=== PATIENT | female | born 1980 | race Caucasian/White ===

== ENCOUNTER 2019-10-18 10:10 | Outpatient (REF) | payer MEDICAID, SELFPAY ==
--- NOTE | 2019-10-18 10:00 | PAPFT_PTH ---
PATIENT: Verenice Nelson LOC: [facility] U#:[id number] AGE/SX: 39/F ROOM: RE10/18/[address]: ELOY Gallegos : 1980 BED: DIS: 10/18/2019 SPEC #: [id number] RECD: 10/18/19 12:48 STATUS: SCOOTER REQ #: [id number] LISETH: 10/18/19 10:[address]: Irasema Barfield DEPT: [facility] Cytology RECD BY: Sugar Cardenas ENTERED: 10/18/19 12:48 SP TYPE: PAPFT OTHR DR: Be Mistry Tissues: 1 - CX/ENDOCX FOR PAP SMEARS Procedures: PAP THIN PREP/UVM Screening HPV DNA PROBE Comments: [id number]
== END 2019-10-18 10:30 ==
LOC: LBN 10:10
PROVIDERS: PCP Family Medicine; Visit Provider Nurse Practitioner Family
DX: Z12.4 Encounter for screening for malignant neoplasm of cervix (principal); Z11.51 Encounter for screening for human papillomavirus (HPV)
CPT/HCPCS: 88142; 87624

== ENCOUNTER 2019-10-19 14:03 | Outpatient (REF) | payer MEDICAID, SELFPAY ==
[2019-10-19 20:01] LABS: HCT 43.1 % (36.0-46.0); HGB 13.6 g/dL (11.2-15.7); MCH 27.9 pg (27.0-33.0); MCHC 31.6 % (32.0-36.0); MCV 88.3 fL (80-95); MPV 10.4 fL (8.0-11.0); Platelet Count 159 10^3/uL (130-400); RBC 4.88 10^6/uL (3.93-5.22); WBC 15.11 10^3/uL (4.4-10.8)
[2019-10-19 20:34] LABS: ALT 36 U/L (14-59); AST 21 U/L (15-37); Albumin 3.4 g/dL (3.4-5.0); Alkaline Phosphatase 87 U/L (46-116); Anion Gap 10.5 mmol/L (3-11); BUN 7 mg/dL (7-18); Bilirubin, Total 0.2 mg/dL (0.2-1.0); CO2 26.5 mmol/L (21.0-32.0); CREATININE 0.84 mg/dL (0.55-1.02); Calcium 8.7 mg/dL (8.5-10.1); Chloride 102 mmol/L (98-107); Glucose 106 mg/dL (74-106); Potassium 3.8 mmol/L (3.5-5.1); Sodium 139 mmol/L (136-145); TSH (W/Ref FT4) 2.13 uIU/mL (0.36-3.74); Total Protein 7.7 g/dL (6.4-8.2)
== END 2019-10-19 14:23 ==
LOC: NCHCN 14:03
PROVIDERS: PCP Nurse Practitioner; Visit Provider Nurse Practitioner
DX: R10.30 Lower abdominal pain, unspecified (principal)
CPT/HCPCS: 80053; 85027; 84443

== ENCOUNTER 2019-10-20 02:12 | Outpatient (CLI) | payer MEDICAID, SELFPAY ==
--- NOTE | 2019-10-20 06:15 | DI.US_ITS ---
EXAM: US PELVIS TRANSVAGINAL CLINICAL HISTORY: abd and pelvic cramping, r10.2 TECHNIQUE: Ultrasound performed using standard protocol. COMPARISON: US SURVEY*(P) from 10/11/2010 FINDINGS: Pelvic ultrasound was performed transabdominally and trans vaginally. Please see the accompanying da ta sheet for measurements of the pelvic structures. Uterus is unremarkable in appearance with a 7 mi llimeter thick homogeneous endometrial stripe. Ovaries were only visualized transabdominally and are grossly intact. No free fluid in cul-de-sac. Limited scanning of the kidneys is unremarkable. IMPRESSION: Negative pelvic ultrasound. DATA REPOSITORY:
== END 2019-10-20 02:32 ==
PROVIDERS: PCP Nurse Practitioner; Visit Provider Nurse Practitioner Family
DX: R10.2 Pelvic and perineal pain (principal)
CPT/HCPCS: 76830; 76856

== ENCOUNTER 2020-03-27 03:04 | Outpatient (CLI) | payer MEDICAID, SELFPAY ==
[2020-03-27 10:24] LABS: Abs Immature Grans 0.05 10^3/uL (0.0-0.06); Absolute Lymphocyte Count 3.09 10^3/uL (1.2-3.4); Basophils % 0.6; Eosinophils % 2.2; HCT 41.6 % (36.0-46.0); HGB 13.4 g/dL (11.2-15.7); Immature Grans % 0.3; Lymphocytes % 21.5; MCH 26.9 pg (27.0-33.0); MCHC 32.2 % (32.0-36.0); MCV 83.4 fL (80-95); MPV 9.5 fL (8.0-11.0); Monocytes % 6.3; Neutrophils % 69.1; Nucleated RBC 0 %; Platelet Count 364 10^3/uL (130-400); RBC 4.99 10^6/uL (3.93-5.22); RDW 14.2 % (11.7-14.6); RDW-SD 43.1 fL; WBC 14.39 10^3/uL (4.4-10.8)
[2020-03-27 10:26] LABS: Absolute Basophil Count 0.09 10^3/uL (0.0-0.2); Absolute Eosinophil Count 0.32 10^3/uL (0.0-0.7); Absolute Monocyte Count 0.91 10^3/uL (0.1-0.8); Absolute Neutrophil Count 9.94 10^3/uL (1.2-6.7)
[2020-03-28 08:54] LABS: HBs Antibody, Quant <3.1 mIU/mL (See Note); Hepatitis B Surface Ab Negative (See Note)
[2020-03-28 09:35] LABS: HIV-1/2 Ag & Ab Screen Negative (Negative)
[2020-03-28 09:54] LABS: Hepatitis C Ab w Rflx HCV PCR Negative (Negative)
[2020-03-29 10:43] LABS: Syphilis Total Ab w/Reflex Nonreactive (Nonreactive)
== END 2020-03-27 03:05 | disposition home or self-care (01) ==
LOC: LBO 03:04
PROVIDERS: PCP Nurse Practitioner; Visit Provider Obstetrics & Gynecology Gynecology
DX: A63.0 Anogenital (venereal) warts (principal); Z11.59 Encounter for screening for other viral diseases; Z11.4 Encounter for screening for human immunodeficiency virus [HIV]; E66.9 Obesity, unspecified
CPT/HCPCS: 36415; 86706; 86803; 87389; 85025; 86780

== ENCOUNTER 2022-03-21 19:05 | Emergency (ER) | payer MEDICAID, SELFPAY ==
[2022-03-21 19:11] VITALS: BP 186/112; PULSE 91; RESP 16; TEMP 36.9; O2SAT 99
--- NOTE | 2022-03-21 19:26 | ED.GENADUL_ITS ---
Discharge Plan Disposition Patient Disposition: Home Condition: Stable Discharge Details Clinical Impression: Flank pain Primary Care Provider: Sudha Tesfaye ED Provider: Pam Springer Home Meds and New Rx's Prescriptions: No Action No Known Home Meds Discharge Instructions Instructions: Musculoskeletal Pain (ED), Flank Pain (ED) Additional Instructions: At this time there is no evidence for kidney stone or urinary tract infection. I do suspect that this is musculoskeletal pain. Alternate ice and heat, you may use [id number] topical remedies such as Biofreeze or similar. Please take Tylenol or Ibuprofen with food every 4-6 hours as needed for pain and swelling. You were given a lidocaine patch which she can also get [id number]. Return to the ER for any worsening vomiting, worsening pain not relieved by Tylenol or ibuprofen with the above measures, diarrhea, fever or concerns. Follow up with primary care provider in 3-5 days. Return to ED sooner if any worsening or concerns. Increase oral fluids. Referrals: Sudha Tesfaye [Primary Care Provider] - 1 week Discharge Data Discharge Date/Time-TO BE ENTERED AT DEPARTURE: 03/21/22 20:52 Medical Decision Making 41-year-old female presents to the ER with chief complaint of right flank pain which began 3 days ago she reports over the last 2 hours it is worsened. It is tender to the touch, worse with movement and deep breathing. She denies any shortness of breath, cough productive cough, nausea vomiting diarrhea or problems urinating. She denies any fever chills. 1929: Urinalysis ordered, urine Prag 60 of Toradol 60 of Norflex IM. Will consider CT abdomen pelvis if there is hematuria to rule out kidney stone or other etiology. Urinalysis shows small blood, 5-10 RBCs no leukocytes no nitrites no evidence of urinary tract infection. Will scan for rule out kidney stone. No evidence of nephrolithiasis on imaging. 2041: Patient reevaluation she reports that she feels somewhat better after the Toradol and Norflex but is still having some pain. Lidocaine patch ordered and applied by staff development educator. Discussed home care and strict return instructions. Patient offered stronger analgesia which she declined at this time. Patient denies any systemic symptoms no fever no chills no nausea vomiting diarrhea no abdominal pain. I do feel it is appropriate for patient to be discharged home at this time with possible musculoskeletal pain. This text was generated using [employer] dictation system, please disregard any oddities of phrase or misspellings. Imaging Data Radiologic Study: Imaging: CT Scan Radiologist's impression: CT abdomen pelvis without contrast IMPRESSION: 1. No acute findings. 2. Hepatomegaly and moderate fatty infiltration of the liver. 3. Additional nonemergent findings detailed above. Dictated and Authenticated by: Be Weller MD. Lab Data Lab results reviewed: Yes I reviewed the patient's lab results. Labs: Laboratory Tests Range/Units 03/21/22 19:30 Urine Color (Yellow) Yellow Urine Clarity (Clear) Clear Urine pH (5-8) 6.5 Ur Specific [place] (1.005-1.025) >= 1.030 H Urine Protein (Negative) mg/dL Negative Urine Ketones (Negative) mg/dL Negative Urine Blood (Negative) Small H Urine Nitrite (Negative) Negative Urine Bilirubin (Negative) Negative Urine Urobilinogen (Up TO 0.2) EU/dL 0.2 Ur Leukocyte Esterase (Negative) Negative Urine RBC (0-2) HPF 5-10 H Urine WBC (0-5) HPF Negative Ur Epithelial Cells (Negative) HPF Rare Urine Crystals (Negative) HPF Negative Urine Bacteria (Negative) HPF Rare Urine Casts (Negative) LPF Negative Urine Mucus (Negative) Negative Ur Culture Indicated? No Urine Glucose (Negative) mg/dL Negative HPI General Mode of arrival: ambulatory . Date/Time Provider Initiated Documentation: 03/21/22 19:18 . Limitations to Documentation: no limitations . Information obtained by: patient, RN notes reviewed and old records reviewed . HPI Narrative: 41-year-old female presents to the ER with chief complaint of right flank pain which began 3 days ago she reports over the last 2 hours it is worsened. It is tender to the touch, worse with movement and deep breathing. She denies any shortness of breath, cough productive cough, nausea vomiting diarrhea or problems urinating. She denies any fever chills. No significant past medical history meds are allergies. No significant surgeries. Related Data Home Medications Medication Instructions Recorded Confirmed Unknown [No Known Home Meds] 10/18/19 03/21/22 Allergies Allergy/AdvReac Type Severity Reaction Status Date / Time No Known Allergies Allergy Verified 10/18/19 09:22 General Stated Complaint: Nk/Back Pain LEONIDES: 4 Review of Systems All systems reviewed & are unremarkable except as noted in HPI and below Cardiovascular Cardiovascular: Denies chest pain and Denies dyspnea Respiratory Respiratory: Denies cough, Denies excessive phlegm production and Denies dyspnea Gastrointestinal Gastrointestinal: Denies abdominal pain, Denies diarrhea, Denies nausea and Denies vomiting Genitourinary Genitourinary: Reports as per HPI and Reports flank pain Musculoskeletal Musculoskeletal: Reports as per HPI, Reports back pain, Denies myalgias, Denies numbness and Reports stiffness Neurologic Neurologic: Denies numbness PFSH All Active Problems (Updated 03/21/22 @ 20:46 by Pam Springer NP) Flank pain (Acute) Surgical History H/O tubal ligation Family History Father Lung cancer Mother Well adult Brother Seizure disorder Social History Smoking/Tobacco Use Status: Former Tobacco Use Smoking risk assessment performed?: Yes Alcohol Intake: never Substance use type: does not use Female Reproductive History Menstrual control method: permanent sterilization History History 3 Para 3 Hx # Term Pregnancies Multiple births Hx # Pregnancies Ectopic pregnancies AB induced Hx Number of Living Children AB spontaneous Exam Narrative Exam Narrative: Constitutional: Alert and oriented x3. Appears stated age. Obese body habitus. Head: Normocephalic, no trauma. Eyes: Pupils PERRL, Red reflex noted, EOM's intact. Eyelids symmetrical without lesions, discharge, or swelling. ENT: Bilateral TM's WNL, External ear normal to inspection, no mastoid TTP, swelling, or erythema, Nasal turbinates WNL, no nasal discharge. Normal dentition, Posterior pharynx WNL, no exudate. Chest: RRR, Normal S1, S2, distal pulses intact. Resp: Lungs clear to auscultation bilaterally, no wheezes, rales, or rhonchi. Abdomen: Soft, non-distended, Normoactive bowel sounds all 4 quads. Musculoskeletal: Normal gait, 5/5 strength to all four extremities. Tenderness with palpation to right posterior flank, pain palpated up on the right paraspinous area and over the scapula. No obvious deformity no rash. Skin: No suspicious rashes or lesions. Capillary refill less than 2 sec. Neurologic: Cranial nerves II-XII intact. Alert and oriented x 3. Motor: No deficits noted. Sensory: Intact bilaterally all 4 extremities. Reflexes: DTR's intact bilaterally.. Hematologic/Lymphatic: No ecchymosis, no lymphadenopathy. Course Vital Signs Vital signs: Vital Signs Temperature 36.9 C 03/21/22 19:11 Pulse 91 H 03/21/22 19:11 Respiratory Rate 16 03/21/22 19:11 Blood Pressure 186/112 H 03/21/22 19:11 Pulse Oximetry 99 03/21/22 19:11 Temperature 36.9 C 03/21/22 19:11 Temperature Source Temporal Artery Scan 03/21/22 19:11 Pulse 91 H 03/21/22 19:11 Respiratory Rate 16 03/21/22 19:11 Respiratory Effort 03/21/22 19:11 Blood Pressure 186/112 H 03/21/22 19:11 Blood Pressure Position Sitting 03/21/22 19:11 Pulse Oximetry 99 03/21/22 19:11 Oxygen Delivery Method Room Air 03/21/22 19:11 Oxygen Flow Rate 0 03/21/22 19:11 Pain Level 10 03/21/22 19:11
[2022-03-21] MEDS: Ketorolac 60 MG/2 ML VIAL IM (19:36)
[2022-03-21] MEDS: Orphenadrine 60 MG/2 ML VIAL IM (19:36)
[2022-03-21 19:37] LABS: Bilirubin Negative (Negative); Blood Small (Negative); Clarity Clear (Clear); Glucose Negative (Negative); Ketones Negative (Negative); Leukocyte Esterase Negative (Negative); Nitrite Negative (Negative); Specific Gravity >= 1.030 (1.005-1.025); Urobilinogen 0.2 EU/dL (Up TO 0.2); pH 6.5 (5-8)
[2022-03-21 19:42] LABS: Bacteria Rare HPF (Negative); C & S Indicated? No; Casts Negative LPF (Negative); Crystals Negative HPF (Negative); Epithelial Cells Rare HPF (Negative); WBC Negative HPF (0-5)
[2022-03-21 19:43] LABS: Mucus Negative (Negative)
--- NOTE | 2022-03-21 19:45 | DI.CT_ITS ---
Exam(s) CT RENAL COLIC WO EXAM: CT RENAL COLIC WO CLINICAL HISTORY: Right Flank Pain, R/O Kidney stone. TECHNIQUE: Imaging Protocol: Axial computed tomography images with coronal and sagittal reformatted images were created and reviewed. CONTRAST MATERIAL: Noncontrast COMPARISON: No exams were available for comparison FINDINGS: ABDOMEN: Lung Bases: Normal where visualized. Liver: Enlarged with hepatic steatosis. No measurable mass. Gallbladder and biliary tract: No radiodense calculus or dilation. Pancreas: Normal density, no calcifications or inflammatory process. Spleen: Normal. Kidneys: Normal size, contour and axis. No radiodense stones or obstructive uropathy. No masses seen. Adrenal glands: No masses seen. Abdominal Aorta: Abdominal portion non-dilated. Soft tissues: Small amount of fat at the umbilicus. PELVIS: Bladder: Symmetric distention, no gross wall thickening. No evidence of stones.No visible mass. Bowel: No obstruction or bowel wall thickening. Reproductive: Peritoneal cavity: No ascites, collection or mesenteric inflammatory response. Bones: Unremarkable for age.. IMPRESSION: Unremarkable CT scan of the abdomen and pelvis. RADIATION DOSE DELIVERED: 1,307.96mGy.cm Total DLP DATA REPOSITORY: All CT scans at this facility are submitted to the National Radiology Data Registry (NRDR) Dose Index Registry (DIR) with the [employer] (ACR). RADIATION OPTIMIZATION: All CT scans at this facility use at least one of these dose optimization te chniques: automated exposure control; mA and/or kV adjustment per patient size (includes targeted exa ms where dose is matched to clinical indication); or iterative reconstruction.
--- NOTE | 2022-03-21 20:22 | DI.VRAD_ITS ---
PROCEDURE INFORMATION: Exam: CT Abdomen And Pelvis Without Contrast Exam date and time: 03/21/2022 7:58 PM Age: 41 years old Clinical indication: Abdominal pain; Flank; Right; Additional info: Right flank pain TECHNIQUE: Imaging protocol: Computed tomography of the abdomen and pelvis without contrast. Radiation optimization: All CT scans at this facility use at least one of these dose optimization techniques: automated exposure control; mA and/or kV adjustment per patient size (includes targeted exams where dose is matched to clinical indication); or iterative reconstruction. COMPARISON: US PELVIS TRANSVAGINAL 10/20/2019 8:10 AM FINDINGS: Lungs: 3 mm calcified granuloma in the posterior right lung base. Heart: Heart size normal. Mediastinal space: The visualized distal esophagus is largely contracted without gross abnormality. Diaphragm: Mildly elevated right hemidiaphragm. Liver: Hepatomegaly measuring 20 cm craniocaudal. Moderate generalized fatty infiltration of the liver with mild sparing around the gallbladder fossa. Normal contour. No mass lesions. No intrahepatic biliary ductal dilatation. Gallbladder and bile ducts: Normal. No calcified stones. No ductal dilation. Pancreas: Normal. No inflammatory changes or ductal dilation. Spleen: Normal. No splenomegaly. Adrenal glands: Normal. No adrenal mass. Kidneys and ureters: No acute abnormalities. No hydronephrosis or hydroureter. No urinary tract stones are identified. Small intrapelvic phleboliths bilaterally. Stomach and bowel: The stomach is unremarkable. The small bowel is nondilated with no gross abnormality. No acute colonic abnormalities. Appendix: The appendix is normal in caliber and demonstrates no evidence of appendicitis. Intraperitoneal space: No free fluid or air. Vasculature: No acute process. No abdominal aortic aneurysm. Mild calcific atherosclerosis. Lymph nodes: No adenopathy. Urinary bladder: The urinary bladder is largely contracted without gross abnormality. Reproductive: Uterus is unremarkable. Small bilateral ovarian follicles which are within physiologic range, ovaries otherwise unremarkable. Bones/joints: No acute osseous abnormalities. Minor osteoarthritic changes in the SI joints with no articular erosions or demineralization to suggest acute sacroiliitis. Soft tissues: Very small fatty umbilical hernia . No evidence of associated bowel herniation or strangulation. IMPRESSION: 1. No acute findings. 2. Hepatomegaly and moderate fatty infiltration of the liver. 3. Additional nonemergent findings detailed above. Dictated and Authenticated by: Be Weller MD. Ordering:QUIN Orozco MD
[2022-03-21] MEDS: Lidocaine 5% Patch 1 PATCH TP (20:40)
== END 2022-03-21 20:52 | disposition home or self-care (01) ==
PROVIDERS: Emergency Provider Registered Nurse Emergency; PCP Nurse Practitioner
DX: R10.9 Unspecified abdominal pain (principal); R11.10 Vomiting, unspecified
CPT/HCPCS: 81025; 96372; 99284; J2360; 74176; 81003; 81015; J1885

== ENCOUNTER 2022-04-03 16:12 | Outpatient (REF) | payer MEDICAID, SELFPAY ==
[2022-04-03 15:45] LABS: Abs Immature Grans 0.04 10^3/uL (0.0-0.06); Absolute Basophil Count 0.08 10^3/uL (0.0-0.2); Absolute Eosinophil Count 0.38 10^3/uL (0.0-0.7); Absolute Lymphocyte Count 3.25 10^3/uL (1.2-3.4); Absolute Monocyte Count 0.91 10^3/uL (0.1-0.8); Basophils % 0.6; Eosinophils % 2.9; HCT 43.1 % (36.0-46.0); HGB 13.9 g/dL (11.2-15.7); Immature Grans % 0.3; Lymphocytes % 25.1; MCH 27.5 pg (27.0-33.0); MCHC 32.3 % (32.0-36.0); MCV 85 fL (80-95); MPV 9.8 fL (8.0-11.0); Neutrophils % 64.1; Platelet Count 154 10^3/uL (130-400); RBC 5.06 10^6/uL (3.93-5.22); RDW 13.3 % (11.7-14.6); RDW-SD 41.7 fL; WBC 12.96 10^3/uL (4.4-10.8)
[2022-04-03 15:48] LABS: Absolute Neutrophil Count 8.31 10^3/uL (1.2-6.7)
[2022-04-03 15:49] LABS: Diff Comment PLT Morph Reviewed; RBC Morphology Normal
[2022-04-03 15:59] LABS: Bilirubin Negative (Negative); Blood Small (Negative); Clarity Clear (Clear); Glucose Negative (Negative); Ketones Negative (Negative); Leukocyte Esterase Negative (Negative); Nitrite Negative (Negative); Specific Gravity >= 1.030 (1.005-1.025); Urobilinogen 0.2 EU/dL (Up TO 0.2); pH 5.5 (5-8)
[2022-04-03 16:03] LABS: ALT 27 U/L (14-59); AST 18 U/L (15-37); Albumin 3.9 g/dL (3.4-5.0); Alkaline Phosphatase 88 U/L (46-116); Anion Gap 9.2 mmol/L (3-11); BUN 11 mg/dL (7-18); Bilirubin, Total 0.2 mg/dL (0.2-1.0); CO2 26.8 mmol/L (21.0-32.0); CREATININE 0.8 mg/dL (0.55-1.02); Calcium 9.4 mg/dL (8.5-10.1); Calculated LDL 130 mg/dL (<100); Chloride 102 mmol/L (98-107); Cholesterol 213 mg/dL (<200); Estimated GFR 96.06 (mL/min/1.73m2); Glucose 100 mg/dL (74-106); HDL Cholesterol 43 mg/dL (40-60); Sodium 138 mmol/L (136-145); TSH (W/Ref FT4) 2.33 uIU/mL (0.36-3.74); Total Protein 8.2 g/dL (6.4-8.2); Triglyceride 201 mg/dL (<150)
[2022-04-03 16:04] LABS: Bacteria Negative HPF (Negative); C & S Indicated? No; Casts Negative LPF (Negative); Crystals Negative HPF (Negative); Epithelial Cells Few HPF (Negative); Mucus Negative (Negative); Other Cells Negative (Negative); WBC 0-2 HPF (0-5)
== END 2022-04-03 16:13 | disposition home or self-care (01) ==
LOC: NCHCN 16:12
PROVIDERS: PCP Nurse Practitioner Family; Visit Provider Nurse Practitioner Family
DX: F41.9 Anxiety disorder, unspecified (principal); R31.9 Hematuria, unspecified; M54.59 Other low back pain
CPT/HCPCS: 80053; 80061; 81003; 81015; 84443; 85025

== ENCOUNTER 2022-05-21 01:06 | Outpatient (CLI) | payer MEDICAID, SELFPAY ==
--- NOTE | 2022-05-21 | DI.US_ITS ---
Exam(s) US RENAL EXAM: US RENAL CLINICAL HISTORY: HEMATURIA, R31.9. TECHNIQUE: Ortiz scale, color and spectral Doppler were used. COMPARISON: CT CT RENAL COLIC WO from 03/21/2022 FINDINGS: Renal size in cm: Right: 11.0. Left: 12.0. Echogenicity: Normal. Hydronephrosis: No. Cyst or mass: No. Nephrolithiasis: No. Other findings: None. Bladder:Normal. Ureteral jets: Right: Visualized and unremarkable. Left: Visualized and unremarkable. Prevoid vol:410 cc Postvoid vol:16 cc Renal color flow: Symmetric and within normal limits. IMPRESSION: Unremarkable examination. DATA REPOSITORY:
== END 2022-05-21 01:26 ==
LOC: DI 01:07
PROVIDERS: PCP Nurse Practitioner Family; Visit Provider Nurse Practitioner Family
DX: R31.9 Hematuria, unspecified (principal)
CPT/HCPCS: 76770

== ENCOUNTER 2022-08-19 13:48 | Outpatient (REF) | payer MEDICAID, SELFPAY ==
[2022-08-19 14:29] LABS: Bilirubin Negative (Negative); Blood Trace-intact (Negative); Clarity Turbid (Clear); Glucose Negative (Negative); Ketones Negative (Negative); Leukocyte Esterase Negative (Negative); Nitrite Negative (Negative); Specific Gravity 1.025 (1.005-1.025); Urobilinogen 0.2 mg/dL (Up to 0.2); pH 5.5 (5-8)
[2022-08-19 14:53] LABS: Bacteria Rare HPF (Negative); C & S Indicated? No; Casts Negative LPF (Negative); Crystals Many Amorphous HPF (Negative); Epithelial Cells Moderate HPF (Negative); Mucus Negative (Negative); Other Cells Few Transitional (Negative); RBC 0-2 HPF (0-2); WBC Negative HPF (0-5)
== END 2022-08-19 13:49 | disposition home or self-care (01) ==
LOC: LBN 13:48
PROVIDERS: PCP Nurse Practitioner Family; Visit Provider Nurse Practitioner Gerontology
DX: R31.9 Hematuria, unspecified (principal)
CPT/HCPCS: 81003; 81015

== ENCOUNTER → 2023-03-19 01:47 | Outpatient (CLI) | payer MEDICAID, SELFPAY ==
--- NOTE | 2023-03-19 13:21 | DI.MAMMO_ITS ---
Exam(s) US BREAST LT COMPLETE MAMMO DIAGNOSTIC BI EXAM: MAMMO DIAGNOSTIC BI and U/S breast LT complete CLINICAL HISTORY: NEW LT BREAST LUMP, LOWER OUTER QUADRANT,n63.0,BASELINE. TECHNIQUE: Craniocaudal and mediolateral oblique Full Field Digital Mammography views with Computer Aided Diagnosis followed by Tomosynthesis and left breast ultrasound. All 4 quadrants of the left br east were evaluated including the left axilla and left retroareolar region. COMPARISON: This is a baseline examination. FINDINGS: Mammography/Tomosynthesis: Masses/Architectural Distortion: None seen. Microcalcifictions: No suspicious pleomorphic-type are seen. Skin Thickening/Nipple Retraction: None. Complete left breast US: Echotexture: Normal appearance of the glandular tissue. Shadowing: No suspicious foci. Cyst: None. Solid lesions: None seen. Ductal dilation: None. IMPRESSION: 1. No evidence of malignancy is noted. 2. Unless there is more urgent need, follow-up screening mammography is recommended, as per [employer] guidelines. 3. The findings were discussed with the patient on the date of the examination. BI-RADS Category 1 - Negative Breast Density - Category B - Scattered areas of fibroglandular density Breast density Category C or D implies that the patient has dense breast tissue. Dense breast tissue can make it harder to find cancer on a mammogram. Dense breast tissue is also associated with an incr eased risk of breast cancer. This information about the result of the mammogram report was provided to the patient to raise their awareness. Use this report when you speak with the patient about their risks for breast cancer, which includes their family history. At that time, you may recommend additional screening tests (Ultrasoun d or MRI) as these tests may add significant information. A negative radiographic report should not delay biopsy if a dominant or clinically suspicious mass is present. Up to ten percent of cancers are not identified on mammography. A negative report may reinforce clinical impression. Adenosis and dense breasts may obscure an underlying neoplasm. False positive reports average 6 to 10%. Patient will receive a letter notifying them of these results.
== END ==
PROVIDERS: PCP Nurse Practitioner Family; Visit Provider Nurse Practitioner Family
DX: Z12.31 Encounter for screening mammogram for malignant neoplasm of breast (principal); R92.8 Other abnormal and inconclusive findings on diagnostic imaging of breast
CPT/HCPCS: 76642; 77062; 77066; G0279